=== PATIENT | male | born 1975 | race Hispanic/Latino ===

== ENCOUNTER 2021-06-22 12:57 | Emergency (ER) | payer SELFPAY ==
[2021-06-22] MEDS ORDERED: Acetaminophen 500 MG TAB ONE (13:34)
[2021-06-22] MEDS ORDERED: Ibuprofen 200 MG TAB ONE (13:34)
== END 2021-06-22 14:13 | disposition home or self-care (01) ==
LOC: ERS 12:57
DX: S83.91XA Sprain of unspecified site of right knee, initial encounter (principal); E11.9 Type 2 diabetes mellitus without complications; Z79.84 Long term (current) use of oral hypoglycemic drugs; X58.XXXA Exposure to other specified factors, initial encounter